=== PATIENT | male | born 1985 | race Hispanic/Latino ===

== ENCOUNTER 2017-10-21 14:50 | Emergency (ER) | payer OTHER ==
[2017-10-21] MEDS ORDERED: Sodium Chloride 0.9% 1,000 ML IV STA (15:31)
--- NOTE | 2017-10-21 15:37 | ED PDOC ---
HPI: Chest Pain Time Seen by Provider: 10/21/17 15:10 Chief Complaint (Nursing): Palpitations Chief Complaint (Provider): Irregular Heartbeat and Palpitations History Per: Patient History/Exam Limitations: no limitations Onset/Duration Of Symptoms: Hrs (x24 hours) Current Symptoms Are (Timing): Still Present Severity: None Associated Symptoms: denies: Nausea Modifying Factors: None Exacerbating Factors: None Alleviating Factors: None Additional Complaint(s): 32 year old male with no past medical history of heart conditions presents to the emergency department complaining of palpitations and irregular heartbeats associated with mild lightheadedness and shortness of breath which began within the last 24 hours. Patient reports that he was seen by his primary care provider this morning who performed an EKG which showed a Type 2 heart block and recommended he come into the emergency department to be evaluated. He states that he had a similar episode about 10 years ago while he was in college but states the episode did not last for this prolonged amount of time. Denies recent long distance travel, cough, congestion, chest pain, leg pain, calf pain/ swelling, fevers, chills, nausea, vomiting. 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 Of note: Patient is currently taking clonazepam .5 mg daily for anxiety PMD: Ciara Quintanilla Past Medical History Reviewed: Historical Data, Nursing Documentation, Vital Signs Vital Signs: Last Vital Signs Temp 98.0 F 10/21/17 14:58 Pulse 71 10/21/17 15:21 Resp 12 10/21/17 15:21 BP 114/58 L 10/21/17 15:21 Pulse Ox 100 10/21/17 15:58 - Medical History PMH: No Chronic Diseases - Surgical History Surgical History: No Surg Hx - Family History Family History: States: Unknown Family Hx - Living Arrangements Living Arrangements: With Family - Social History Current smoker - smoking cessation education provided: No Ex-Smoker (has not smoked in the last 12 months): No Alcohol: None Drugs: Denies - Home Medications Home Medications: Ambulatory Orders Medication Instructions Recorded Citalopram Hydrobromide 40 mg PO DAILY 10/21/17 [Citalopram HBr] Clonazepam [Klonopin] 0.5 mg PO BID PRN 10/21/17 - Allergies Allergies/Adverse Reactions: Allergies Allergy/AdvReac Type Severity Reaction Status Date / Time No Known Allergies Allergy Verified 10/21/17 14:58 Review of Systems ROS Statement: Except As Marked, All Systems Reviewed And Found Negative Constitutional: Negative for: Fever, Chills ENT: Negative for: Nose Congestion Cardiovascular: Positive for: Palpitations. Negative for: Chest Pain Respiratory: Positive for: Shortness of Breath. Negative for: Cough Gastrointestinal: Negative for: Nausea, Vomiting, Diarrhea Musculoskeletal: Negative for: Back Pain, Leg Pain Neurological: Positive for: Dizziness Physical Exam - Reviewed Nursing Documentation Reviewed: Yes Vital Signs Reviewed: Yes - Physical Exam Appears: Positive for: Non-toxic, No Acute Distress Head Exam: Positive for: ATRAUMATIC, NORMAL INSPECTION, NORMOCEPHALIC Skin: Positive for: Normal Color, Warm, Dry. Negative for: Rash Eye Exam: Positive for: Normal appearance, EOMI, PERRL. Negative for: Nystagmus ENT: Positive for: Normal ENT Inspection. Negative for: Nasal Congestion, Tonsillar Exudate, Tonsillar Swelling Neck: Positive for: Normal, Painless ROM, Supple Cardiovascular/Chest: Positive for: Regular Rate, Rhythm, Chest Non Tender. Negative for: Gallop, Murmur, Tachycardia Respiratory: Positive for: Normal Breath Sounds. Negative for: Rales, Rhonchi, Wheezing, Respiratory Distress Gastrointestinal/Abdominal: Positive for: Normal Exam, Bowel Sounds, Soft. Negative for: Tenderness, Mass, Guarding, Rebound Back: Positive for: Normal Inspection. Negative for: L CVA Tenderness, R CVA Tenderness, Vertebral Tenderness Extremity: Positive for: Normal ROM. Negative for: Tenderness, Calf Tenderness , Deformity, Swelling Neurologic/Psych: Positive for: Alert, Oriented, Gait. Negative for: Motor/ Sensory Deficits - Laboratory Results Result Diagrams: 10/21/17 15:40 10/21/17 15:40 - ECG ECG: Positive for: Interpreted By Me, Viewed By Me Interpretation Of Abn EKG: PACs. EKG from PCP office: second degree block: Mobitz type 2 O2 Sat by Pulse Oximetry: 100 (RA) Pulse Ox Interpretation: Normal - Progress ED Course And Treament: 1600: Spoke with Dr. Cruz. Wants admit to med integration developer. 1626: Spoke with Dr. Minaya who will consult. He reviewed EKG and no further intervention at this time. Pt. stable. Thinks pt. has supraventricular tachy that came and went triggering brief bradycardia. Sinus with occasional pacs currently. No dizziness or palpitations currently. 1651: Spoke with Dr. Huston. Will admit tele obs. Will see pt. in the Er. Medical Decision Making Medical Decision Makin Initial Impression 32 year old male presenting with palpitations Initial Plan: * EKG * Alcohol Serum * CMP * Drug Screen * Magnesium * Phosphorous * Troponin * CBC * Partial Thromboplastin * CBC * Prothrombin Time * Reevaluation - Documented by Qian Cifuentes acting as a scribe for Breezy Cordova MD. All medical record entries made by the Scribe were at my direction and personally dictated by me. I have reviewed the chart and agree that the record accurately reflects my personal performance of the history, physical exam, medical decision making, and the department course for this patient. I have also personally directed, reviewed, and agree with the discharge instructions and disposition. Disposition - Clinical Impression Clinical Impression: Second degree AV block, Mobitz type II, Palpitations - Patient ED Disposition Is Patient to be Admitted: Yes Counseled Patient/Family Regarding: Studies Performed, Diagnosis - Disposition Disposition Time: 16:26 Condition: FAIR - Pt Status Changed To: Hospital Disposition Of: Observation - POA Present On Arrival: None
[2017-10-21 16:00] LABS: BASO # 0.1 K/uL (0.0-0.2); BASO % 1.2 % (0.0-2.0); EOS # 0.4 K/uL (0.0-0.7); EOS % 6.4 % (0.0-4.0); HEMOGLOBIN 16.1 g/dL (12.0-18.0); LYMPH # 2.4 K/uL (1.0-4.3); MEAN CELL VOLUME 91.4 fl (80.0-94.0); MEAN CORPUSCULAR HEMOGLOBIN 32.6 pg (27.0-31.0); MEAN CORPUSCULAR HGB CONC 35.6 g/dL (33.0-37.0); MEAN PLATELET VOLUME 8.6 fl (7.2-11.7); MONO # 0.4 K/uL (0.0-0.8); MONO % 7.1 % (0.0-10.0); NEUT # 2.9 K/uL (1.8-7.0); NEUT % 47.3 % (50.0-75.0); NRBC % 0.1 % (0.0-0.0); RBC 4.94 Mil/uL (4.40-5.90); RED CELL DISTRIBUTION WIDTH 13.1 % (11.5-14.5); WHITE BLOOD COUNT 6.2 K/uL (4.8-10.8)
[2017-10-21 16:10] LABS: ALB/GLOB RATIO 1.4 (1.0-2.1); ALBUMIN 4.5 g/dL (3.5-5.0); ALT/SGPT 36 U/L (21-72); AST/SGOT 32 U/L (17-59); BLOOD UREA NITROGEN 17 mg/dl (9-20); CALCIUM 9.9 mg/dL (8.4-10.2); GFR AFRICAN-AMERICAN > 60; GFR NON-AFRICAN AMERICAN > 60
[2017-10-21 16:14] LABS: INR 1.2 (0.9-1.2); PARTIAL THROMBOPLASTIN TIME 32.6 Seconds (25.6-37.1); PROTHROMBIN TIME 12.9 Seconds (9.8-13.1)
[2017-10-21 16:47] LABS: BARBITURATES, UR NEGATIVE (NEGATIVE); BENZODIAZEPINES, UR NEGATIVE (NEGATIVE); OPIATES, UR NEGATIVE (NEGATIVE); PHENCYCLIDINE, UR NEGATIVE (NEGATIVE)
[2017-10-21 18:58] VITALS: BP 109/55; PULSE 67; RESP 15; TEMP 99.3; O2SAT 98
--- NOTE | 2017-10-22 11:12 | CARD ---
APPROVED REPORT Date of service: 10/21/2017 EKG Measurement Heart [id number] <Conclusion> Sinus rhythm with premature supraventricular complexes Otherwise normal ECG
== END 2017-10-21 18:20 | disposition left against medical advice (07) ==
LOC: H.ER 14:50 → UNDOADMOB 16:52 → H.ERHOLD 16:52 → UNDODISOB 18:20
DX: I44.1 Atrioventricular block, second degree (principal); R00.2 Palpitations
CPT/HCPCS: 80053; 80320; 80324; 80345; 80346; 80349; 80353; 80358; 80361; 83735; 83992; 84100; 84484; 85025; 85610; 85730; 93005; 99285; G0378; J7030